=== PATIENT | female | born 1960 | race Caucasian/White ===

== ENCOUNTER 2023-10-13 03:59 | Emergency (ER) | payer OTHER, SELFPAY ==
[2023-10-13 04:03] VITALS: BP 153/104; BMI 36.9
--- NOTE | 2023-10-13 04:10 | ED.GENMED ---
History of Present Illness
General
Chief Complaint: Heart Rate Problem
Source: patient and ambulance crew
Exam Limitations: none
Time Seen by Provider: 10/13/23 04:07
Nursing documentation reviewed up to this point in time: agreed with
Travel History
Have you had any contact with someone who has COVID-19?: No
Do you have any symptoms of coronavirus? Fever > 100 degrees, chills, cough, shortness of breath, sore throat, loss of taste or smell, muscle aches, or headache?: No
History of Present Illness
History of Present Illness:
63-year-old female presents with palpitations. She states that they awakened her from sleep at 1 AM. Her Apple Watch confirmed that she was in atrial fibrillation. She was in atrial fibrillation one of the time in her past. She is not on any
blood thinners. She takes no cardiac medications. Denies fever, chills, nausea or vomiting.
Vital signs are stable. Patient not hypoxic
Nursing note reviewed. I agree with nursing documentation up to this point in time.
Home Meds and allergies reviewed.
NUMBER AND COMPLEXITY OF PROBLEMS ADDRESSED AT THE ENCOUNTER
� Chronic conditions affecting care: None
� Acute Exacerbation and/or Progression of Chronic Illness: Acute problem
� Differential Diagnosis includes: Palpitations, atrial fibrillation
AMOUNT AND/OR COMPLEXITY OF DATA TO BE REVIEWED AND ANALYZED
I performed an independent evaluation of the following and my interpretation is:
EKG: EKG shows atrial fibrillation rapid ventricular response heart rate in the 140s. No evidence of acute ischemia present. When compared with previous EKG dated November 13, 2011, current atrial fibrillation replaced normal sinus
rhythm.
CT:
X-rays:
Ultrasound:
Laboratory Studies:
Other:
Review of other/old records:
Clinical information was obtained by an independent historian:
Prescriptions/Medications Considered but not given:
Further testing considered but not performed:
RISK OF COMPLICATIONS AND/OR MORBIDITY OR MORTALITY OF PATIENT MANAGEMENT
Social determinants of health affecting care: Good Social Support
Discussion with other providers:
Escalation of care including admission/observation vs risk of discharge considered:
CRITICAL CARE NOTE:
Total Time (exclusive of procedures):
Update:
Past History
Past History
ED Past Medical History: Psychiatric (Depression) and Other (Partial gastric bypass, status post cholecystectomy )
ED Past Surgical History: Cholecystectomy, Orthopedic and Other (Partial gastric bypass)
Social History
Tobacco: Non-smoker
Alcohol: None
Drug: None
Personal:
Living: with family
Employment: Employed
Family History
Family History: Other (Coronary artery disease, rheumatic rheumatoid arthritis, diabetes, hypertension )
Review of Systems
Review of Systems
Allergies reviewed?: Yes
Other source history: ambulance crew
All Other Systems: ROS reviewed and negative except as documented in HPI and ROS
Constitutional: Reports no symptoms
EENT: Reports no symptoms
Respiratory: Reports no symptoms
Cardiac: Reports palpitations
ABD/GI: Reports no symptoms
: Reports no symptoms
Musculoskeletal: Reports no symptoms
Skin: Reports no symptoms
Neurological: Reports no symptoms
Endocrine: Reports no symptoms
Hematologic/Lymphatic: Reports no symptoms
Psychiatric: Reports anxiety
Phy Exam
General Physical Exam
General Presentation: well appearing and no apparent distress
General Skin: warm and dry
General Habitus: normal
General Mental: alert
General Hydration: appears well hydrated
ENT Exam
ENT Exam: EOMI, pharynx normal, neck supple and normocephalic
Eye Exam
Eye Exam: PERRL, cornea clear and conjunctiva normal
Cardiovascular Exam
Cardiovascular Exam: regular rate/rhythm, no edema, no murmur and normal peripheral pulses
Pulmonary Exam
Pulmonary Exam: lungs clear, no respiratory distress, no rales, no crackles, no rhonchi, no stridor, no wheezing and no cough
Gastrointestinal Exam
Gastrointestinal Exam: normal bowel sounds, non tender, soft, no organomegaly, no pulsatile mass and non distended
Neurological Exam
Neurological Exam: alert, oriented x3, no motor deficits and speech normal
Musculoskeletal Exam
Musculoskeletal Exam: full ROM and no edema
Skin Exam
Skin Exam: normal color, warm/dry, no rash and no petechia
Psychiatric Exam
Psychiatric Exam: normal mood/affect
Scores
[id number] Score for Afib Stroke Risk
Age in Years (65=0, 65-74=1, >/=75=2): <65
Sex (Female=+1): Female
Congestive Heart Failure History (Yes=+1): No
Hypertension History (Yes=+1): No
Stroke/TIA/Thromboembolism History (Yes=+2): No
Vascular Disease History (Yes=+1): No
Diabetes Mellitus (Yes=+1): No
Score: 1
Anticoagulation Recommendations: Consider anticoagulation (as validated in nonvalvular fib)
Course
Orders/Labs/Results
Orders:
Orders
10/13/23 04:01
Electrocardiogram (*1) Urgent
Reason for Study: Palpitations
10/13/23 04:02
EKG- Treatment ONCE
10/13/23 04:07
Diltiazem 125 mg/125 ml Nss [Cardizem] 125 mg in 125 ml .ROUTE .STK-MED
Diltiazem HCl [Cardizem] 25 mg .ROUTE .STK-MED ONE
Diltiazem HCl [Cardizem] 25 mg IV NOW STA
10/13/23 04:15
Diltiazem 125 mg/125 ml Nss [Cardizem] 125 mg in 125 ml IV PER PROTOCOL
Initial dose in mg/hr, then titrate:: 5
Titrate to keep:: Heart rate 80-100 bpm
Titrate by mg/hr:: 5 mg/hr
Frequency of titrations (minutes):: 15
Maximum dose in mg/hr:: 15
10/13/23 04:37
CMP [Comprehensive Metabolic Panel] Urgent
Complete Blood Count/With Diff Urgent
TSH Reflex To Free T4 Urgent
Troponin I Urgent
10/13/23 06:42
Apixaban [Eliquis] 5 mg PO NOW STA
Diltiazem Extended Release [Cardizem Cd] 120 mg PO NOW STA
Abnormal Lab Results
10/13/23
04:37
RBC 5.47 H 10^6/uL
(4.20-5.40)
Hct 47.2 H %
(37.0-47.0)
Chloride 111 H mmol/L
(98-107)
Carbon Dioxide 19 L mmol/L
(22-30)
BUN 18 H mg/dl
(7-17)
Glucose 114 H mg/dl
(70-99)
10/13/23 04:37
10/13/23 04:37
Vital Signs
Initial and Last Documented VS:
Initial Vital Signs
Pulse Resp BP Pulse Ox
125 16 153/104 97
10/13/23 04:03 10/13/23 04:03 10/13/23 04:03 10/13/23 04:03
Last Documented Vital Signs
Pulse Resp BP Pulse Ox
99 18 130/82 96
10/13/23 07:00 10/13/23 07:00 10/13/23 05:30 10/13/23 07:00
*Critical Care Note
Total Time (30-74mins, 75-104mins- exclusive of procedures): Not Applicable
Update Note
Update Note:
10/13/2023 0637 AM: Spoke with Dr. Lanre Albert who was on-call for Dr. Post. He agrees with plan to prescribe Cardizem CD and Eliquis. Patient will follow-up in the office. Patient still is in atrial fibrillation but she is rate controlled.
ED Attending Note
-
Portions of this chart may have been created with voice recognition software.� Occasional wrong word or��sound alike� substitutions may have occurred due to the inherent limitations of voice recognition software.
Discharge Plan
Departure
Patient Disposition: Home (Routine Discharge)
Date of Disposition: 10/13/23
Time of Disposition: 06:40
Patient with high blood pressure during this ER visit?: Yes
Discharge Problem:
Atrial fibrillation with rapid ventricular response
Instructions: Atrial Fibrillation (DC), Palpitations (DC), BLOOD PRESSURE
Prescriptions:
New
diltiazem HCl [Cardizem CD] 120 mg capsule,extended release 24hr
120 mg PO DAILY Qty: 30 0RF
Eliquis 5 mg tablet
5 mg PO BID Qty: 30 0RF
No Action
solifenacin [Vesicare] 10 MG tablet
10 mg PO DAILY
Centrum Chew Tab
2 tab PO DAILY
Vitamin B12
5,000 mcg PO DAILY
fluoxetine 20 MG capsule
60 mg PO DAILY
hydrocodone-acetaminophen [Vicodin] 1 EACH tablet
1 ea PO .Q4-6HPRN Qty: 12 0RF
ibuprofen 600 MG tablet
600 mg PO Q6H Qty: 30 0RF
Referrals:
Killian Post MD [Active] - Next open appointment
Nadeem Brito MD [Family Provider] -
Activity Restrictions/Additional Instructions:
It was a pleasure meeting you and taking part in your care. We hope for your continued healing and wellness.
Please read discharge instructions in their entirety. However, they are for general education and may not describe your exact diagnosis at discharge. Information on your ER visit and medical conditions were discussed with you along with appropriate
follow up information...
If indicated, please take your medications as instructed and indicated on discharge paperwork.
Please schedule a follow up appointment as directed. Call to schedule an appointment
Please return to the emergency department with ANY change in, persisting, or worsening of symptoms. If any of your symptoms do not improve, or persist, or become more severe within 6-12 hours, please return to the emergency department for further
care.
Please return to the emergency department if you develop a headache, neck pain/stiffness, fever greater than 100.4F, chest pain, shortness of breath, persistent nausea, vomiting, slurred speech, difficulty walking, numbness/tingling, weakness, signs
of infection or any other symptoms that are worrisome to you.
If you have any questions or concerns please do not hesitate to call the Hospital at or E-mail me directly at [email or web address]
Interventions
Interventions:
*Risk Screen - Suicide Last Done: 10/13/23 04:03
*General Assessment Last Done: 10/13/23 04:03
*Neglect/Abuse Screening Last Done: 10/13/23 04:03
ED- Fall Risk Assessment Last Done: 10/13/23 04:26
*ED COVID-19 Vaccine History Last Done: 10/13/23 04:03
*Nursing Disposition Last Done: 10/13/23 07:26
ED- Cardiac Assessment Last Done: 10/13/23 04:26
ED- Pulmonary Assessment Last Done: 10/13/23 04:26
Discharge Date and Time
Discharge Date/Time: 10/13/23 07:27
Print Language: CHILEAN
[2023-10-13] MEDS: CARDIZEM 25 MG IV (04:17)
[2023-10-13] MEDS: CARDIZEM 125 IV (04:21)
[2023-10-13 04:26] VITALS: BP 127/81
[2023-10-13 04:30] VITALS: BP 124/83
[2023-10-13 05:00] VITALS: BP 128/87
[2023-10-13 05:09] LABS: % Basophils 0.6 % (0-2); % Eosinophils 2.8 % (0-6); % Immature Granulocytes 0.3 % (0-0.5); % Lymphocytes 20.6 % (20.5-51.1); % Neutrophils 67.7 % (42.2-75.2); Absolute Eosinophils 0.2 10^3/uL (0-0.7); Absolute Lymphocytes 1.4 10^3/uL (1.2-3.4); Absolute Monocytes 0.5 10^3/uL (0.1-0.6); Absolute Neutrophils 4.6 10^3/uL (1.4-6.5); Hematocrit 47.2 % (37.0-47.0); Hemoglobin 15.6 g/dL (12.0-16.0); Mean Corp Hgb Conc. 33.1 g/dL (33.0-37.0); Mean Corpuscular Hgb 28.5 pg (27.0-31.0); Mean Corpuscular Volume 86.3 fL (81.0-99.0); Mean Platelet Volume 10.1 fL (7.4-10.4); Nucleated Red Blood Cells % 0 %; Platelet Count 241 10^3/uL (130-400); Red Blood Cell Count 5.47 10^6/uL (4.20-5.40); Red Cell Dist. Width 13.6 % (11.5-14.5); White Blood Cell Count 6.8 10^3/uL (4.8-10.8)
[2023-10-13 05:28] LABS: ALT (SGPT) 34 U/L (0-35); AST (SGOT) 31 U/L (14-36); Albumin 4.1 g/dl (3.5-5.0); Alkaline Phosphatase 99 U/L (38-126); Blood Urea Nitrogen 18 mg/dl (7-17); Calcium 9.8 mg/dl (8.4-10.2); Carbon Dioxide 19 mmol/L (22-30); Chloride 111 mmol/L (98-107); Estimated Creatinine Clearance 99 ml/min; Glucose 114 mg/dl (70-99); Potassium 4.1 mmol/L (3.5-5.1); Sodium 138 mmol/L (135-145); Total Bilirubin 0.3 mg/dl (0.2-1.3); Total Protein 7.4 g/dl (6.3-8.2); eGFR > 60.00
[2023-10-13 05:30] VITALS: BP 130/82
[2023-10-13 05:34] LABS: Troponin I < 0.012 ng/ml
[2023-10-13 06:00] LABS: TSH Reflex To Free T4 4.06 uIU/ml (0.47-4.68)
[2023-10-13] MEDS: ELIQUIS 5 MG PO (07:10)
[2023-10-13] MEDS: CARDIZEM CD 120 MG PO (07:10)
== END 2023-10-13 07:27 | disposition home or self-care (01) ==
LOC: EMR 03:59
PROVIDERS: EMERGENCY PHYSICIAN Student in an Organized Health Care Education/Training Program; FAMILY PHYSICIAN Family Medicine
DX: I48.20 Chronic atrial fibrillation, unspecified (principal); R03.0 Elevated blood-pressure reading, without diagnosis of hypertension
CPT/HCPCS: 99284; 96374; 96376; 80053; 84443; 84484; 85025; 93005

== ENCOUNTER → 2023-10-20 15:30 | Outpatient (REF) | payer OTHER, SELFPAY | LOC: RAD 15:30 | PROVIDERS: ATTENDING PHYSICIAN Family Medicine | DX: M25.522 Pain in left elbow (principal); M54.59 Other low back pain; M54.14 Radiculopathy, thoracic region; I48.0 Paroxysmal atrial fibrillation | CPT/HCPCS: 72072; 72110; 73522 ==

== ENCOUNTER → 2023-11-19 09:05 | Outpatient (REF) | payer OTHER, SELFPAY | LOC: HWWDC 09:05 | PROVIDERS: ATTENDING PHYSICIAN Family Medicine | DX: Z12.31 Encounter for screening mammogram for malignant neoplasm of breast (principal) | CPT/HCPCS: 77063; 77067 ==

== ENCOUNTER 2024-05-13 07:59 | Day surgery (SDC) | payer OTHER, SELFPAY ==
[2024-04-28 12:55] VITALS: BMI 36.4
[2024-04-28 13:25] LABS: INR 1.13; PT 14.5 Sec (11.4-14.6)
[2024-04-28 13:51] LABS: % Basophils 0.6 % (0-2); % Eosinophils 0.6 % (0-6); % Immature Granulocytes 0.2 % (0-0.5); % Monocytes 7.9 % (1.7-9.3); % Neutrophils 76.7 % (42.2-75.2); Absolute Basophils 0.1 10^3/uL (0-0.2); Absolute Eosinophils 0.1 10^3/uL (0-0.7); Absolute Lymphocytes 1.3 10^3/uL (1.2-3.4); Absolute Monocytes 0.7 10^3/uL (0.1-0.6); Absolute Neutrophils 7.2 10^3/uL (1.4-6.5); Hemoglobin 15.7 g/dL (12.0-16.0); Mean Corp Hgb Conc. 34.1 g/dL (33.0-37.0); Mean Corpuscular Hgb 29.2 pg (27.0-31.0); Mean Corpuscular Volume 85.5 fL (81.0-99.0); Mean Platelet Volume 10.8 fL (7.4-10.4); Nucleated Red Blood Cells % 0 %; Platelet Count 256 10^3/uL (130-400); Red Blood Cell Count 5.38 10^6/uL (4.20-5.40); Red Cell Dist. Width 13.6 % (11.5-14.5); White Blood Cell Count 9.4 10^3/uL (4.8-10.8)
[2024-04-28 13:55] LABS: ALT (SGPT) 26 U/L (0-35); AST (SGOT) 24 U/L (14-36); Albumin 4.4 g/dl (3.5-5.0); Alkaline Phosphatase 83 U/L (38-126); Blood Urea Nitrogen 19 mg/dl (7-17); Calcium 9.5 mg/dl (8.4-10.2); Carbon Dioxide 22 mmol/L (22-30); Chloride 105 mmol/L (98-107); Estimated Creatinine Clearance 94 ml/min; Glucose 90 mg/dl (70-99); Magnesium 2.2 mg/dl (1.6-2.3); Potassium 4.2 mmol/L (3.5-5.1); Sodium 140 mmol/L (135-145); Total Bilirubin 0.4 mg/dl (0.2-1.3); Total Protein 7.5 g/dl (6.3-8.2); eGFR > 60.00
[2024-05-13] VITALS (17 sets, daily range): BP systolic 98–130; BP diastolic 63–87; BMI 34.1
[2024-05-13 11:48] LABS: ACT-LR - POC 331 Seconds (116-155)
[2024-05-13 12:14] LABS: ACT-LR - POC 361 Seconds (116-155)
[2024-05-13 12:37] LABS: ACT-LR - POC 364 Seconds (116-155)
--- NOTE | 2024-05-13 13:24 | ITS.CL.ABL ---
Dental Nurse - Ablation
Ablation
Procedure Report:
ELECTROPHYSIOLOGIC STUDY AND POSSIBLE ABLATION
DATE: May 13, 2024
Primary Care Provider: Dr Nadeem Brito
Primary Manager Strategy: Dr Killian Post
INDICATION:
Symptomatic Atrial Fibrillation.
Paroxysmal
HISTORY: See H and P.
Symptomatic AF, poorly controlled with attempted medical therapy. She has had recurrent symptomatic atrial fibrillation initially documented October 13, 2023 with ventricular rates being rapid up to 170 bpm. Evaluated at [place] emergency
department and treated with intravenous diltiazem for heart rate control and then eventually spontaneously cardioverted to sinus rhythm. She has had subsequent recurrences despite Cardizem CD1 120 mg daily, symptomatic. She has been maintained on
oral anticoagulation, Eliquis 5 mg twice daily with no major bleeding complications. She has been compliant with CPAP for treatment of her obstructive sleep apnea.
She presents today for EP study and possible ablation targeting atrial fibrillation.
HAS-BLED: 1
Age
CHADS: 0
CHADSVASc: 1 (F Gender)
PRESENTING RHYTHM: SR with paroxysms of atrial fibrillation
HISTORY: See H and P.
Symptomatic AF, poorly controlled with attempted medical therapy.
'TIME-OUT': called and confirmed.
SEDATION/ANESTHESIA: provided via the anesthesia department using general anesthesia.
PROCEDURE:
Ultrasound Guidance performed by ct was utilized for femoral venous Vascular Access b/l.
A decapolar CS catheter was placed within the CS for mapping and pacing.
The intracardiac ultrasound catheter was positioned in the RA for continuous intracardiac ultrasound imaging.
Heparin bolus and infusion to target ACT at 300 -350 seconds was administered. Transseptal puncture was performed. This entailed advancing a sheath with dilator into the superior vena cava and withdrawing both (monitoring intracardiac ultrasound,
fluoroscopy and tip pressure) with the tip oriented toward the atrial septum. The fossa ovalis was engaged (indicated by sudden displacement of the sheath tip as well as tenting of the fossa seen on intracardiac ultrasound).
AcContrib transseptal system was used. Left atrial catheter position was confirmed by echocardiographic imaging, pressure monitoring (LA mean pressure 11 mm Hg) and fluoroscopy. The sheath was advanced over the dilator and positioned in the left
atrium.
The multipolar mapping catheter was initially positioned through the transseptal sheath for high density mapping.
Geometry and voltage mapping was performed using the Hughes multipolar grid catheter. Ensite-X was utilized for three-dimensional electroanatomical mapping.
A 3-D map was created using Ensite-X in Voxel mode. A 3-D reconstructed CT image was compared to the 3-D Navex map to assist in anatomic evaluation, mapping and ablation.
The Attentio Pulse Select PFA catheter and system was used for cardiac ablation. Catheter positioning was guided and confirmed using both I.C.E. and fluoroscopy.
PV isolation approach was used to electrically isolate each PV ostia (LSPV, LIPV, RSPV, RIPV).
Additional energy applications/additional ablation set was required to accomplish wide area circumferential ablation around each of the pulmonary vein sets and additionally ablation to accomplish LA posterior wall ablation.
Remapping with the Hughes multipolar grid catheter found that all PVPs were eliminated at each vein demonstrating entrance block. Also pacing from the multipolar mapping catheter around the the circumference of the ostia was performed at 10 ma and
2.0 msec output to assess for exit block. This demonstrated electrical isolation at each of the pulmonary vein ostia (LSPV, LIPV, RSPV, RIPV). There is also entrance and exit block at the LA posterior wall.
Programmed electrostimulation was performed. With burst atrial pacing at 350 ms there is induction of atrial fibrillation. Close inspection of remapping suggested there may be opportunity for more robust posterior wall isolation particular towards
the roof of the floor of the left atrium. Therefore the ablation catheter was substituted for the mapping catheter and additional pulse electric field ablation was delivered to the posterior wall of the left atrium towards its dome and towards its
floor. Additional pulsed ultra field energy was also delivered to the superior anterior quadrant of the right superior pulmonary vein to accomplish larger wide area circumferential ablation.
Programmed electrical stimulation was repeated and with burst atrial pacing at 350 ms no atrial fibrillation was induced. However with burst atrial pacing at 300 ms atrial fibrillation which self terminated to sinus rhythm was induced. No further
ablation was performed.
I.C.E. :
Pre-Ablation Post-Ablation
LVEF: 55 % 55 %
WMA: none none
Pericardial effusion: none none
COMPLICATIONS:
None
SUMMARY:
- Mapping and ablation to isolate the PVs
- Additional AF ablation set after PVI.
- 3-D Electroanatomical Mapping
- Intracardiac Ultrasound
Post ablation, I discussed today's findings and results with the patient's daughter, Katelynn.
RECOMMENDATIONS:
- Observe in monitored bed.
- Maintain oral anticoagulation.
- Continue Cardizem
- Continue cardiovascular care with Dr Killian Post
Copy to:
Dr Nadeem Brito
Dr Killian Post
[2024-05-13] MEDS: ANESTHETIC LOZENGE 1 LOZENGE PO (15:36)
--- NOTE | 2024-05-13 17:19 | W.PN.UPDATE ---
Update Note
Progress Note Update
63 yo WF s/p PVI (same day). She denies cp, sob, vandana diet, R fem site c/d/i no HT< soft, EKG SR/SB. She will resume OAC Eliquis tonight and continue diltiazem CD. Activity restrictions reviewed. She will f/u Dr. Post in 3 mo. She is for d/c home
after 545p if voiding and groin stable.
== END 2024-05-13 17:46 | disposition home or self-care (01) ==
LOC: CATH 07:59
PROVIDERS: ATTENDING PHYSICIAN Internal Medicine Cardiovascular Disease; FAMILY PHYSICIAN Family Medicine; OTHER PHYSICIAN Internal Medicine Cardiovascular Disease
DX: I48.0 Paroxysmal atrial fibrillation (principal); E78.5 Hyperlipidemia, unspecified; E66.9 Obesity, unspecified; Z68.36 Body mass index [BMI] 36.0-36.9, adult; G47.33 Obstructive sleep apnea (adult) (pediatric); K76.0 Fatty (change of) liver, not elsewhere classified; Z79.01 Long term (current) use of anticoagulants; Z79.899 Other long term (current) drug therapy; Z88.5 Allergy status to narcotic agent; Z91.02 Food additives allergy status; Z90.49 Acquired absence of other specified parts of digestive tract
CPT/HCPCS: C1732; C1769; C1730; C1892; 36415; 75572; 80053; 83735; 85025; 85347; 85610; 86850; 86900; 86901; 93005; 93656; 93657; C1733; C1760; C1766; C1894; Q9967

== ENCOUNTER → 2024-11-23 10:57 | Outpatient (REF) | payer OTHER, SELFPAY | LOC: WDC 10:57 | PROVIDERS: ATTENDING PHYSICIAN Family Medicine | DX: Z12.31 Encounter for screening mammogram for malignant neoplasm of breast (principal) | CPT/HCPCS: 77063; 77067 ==